=== PATIENT | male | born 1950 | race Caucasian/White ===

== ENCOUNTER 2016-07-03 09:51 | Inpatient (IN) | payer OTHER, MEDICARE ==
[~2016-07-03] VITALS: Ht 180.3 cm; Wt 77.1 kg
[2016-07-03 09:51] VITALS: BP 140/70; PULSE 72; RESP 20; TEMP 100.9; O2SAT 100
--- NOTE | 2016-07-03 09:51 | NUR ---
Pt BIB BLS and placed to ER bed 06. Pt c/o lower back pain x 1 day. Pt with hx spinal stenosis. Denies recent injury or trauma.
--- NOTE | 2016-07-03 09:55 | NUR ---
Dr. Hernández at bedside to assess pt.
--- NOTE | 2016-07-03 10:10 | NUR ---
Off unit for Xray.
[2016-07-03] MEDS ORDERED: KETOROLAC TROMETHAMINE 60 MG/2 ML VIAL IM ONE ×2 (10:12→10:15)
[2016-07-03 11:07] LABS: BILIRUBIN,URINE 1+ (NEGATIVE); BLOOD, URINE NEGATIVE (NEGATIVE); CLARITY/URINE CLEAR (CLEAR); COLOR,URINE YELLOW (YELLOW); GLUCOSE,URINE NEGATIVE (NEGATIVE); KETONES,URINE 2+ (NEGATIVE); LEUKOCYTE ESTERASE ,URINE NEGATIVE (NEGATIVE); NITRITE, URINE NEGATIVE (NEGATIVE); PH,URINE 6.5 (5.0-8.0); PROTEIN URINE 2+ (NEGATIVE)
[2016-07-03 11:10] LABS: BASOPHILS % (AUTO) 0.6 % (0.0-2.0); EOSINOPHILS % (AUTO) 0.1 % (0.0-4.0); HEMATOCRIT 37.5 % (36-54); HEMOGLOBIN 12.9 g/dL (14.0-18.0); LYMPHOCYTES # (AUTO) 0.4 K/uL (1.0-5.5); LYMPHOCYTES % (AUTO) 6.2 % (20.5-51.5); MEAN CORPUSCULAR HEMOGLOBIN 32 pg (27-31); MEAN CORPUSCULAR HGB CONC 34 % (32-36); MEAN CORPUSCULAR VOLUME 92 fL (79.0-98.0); MONOCYTES # (AUTO) 0.6 K/uL (0.0-1.0); MONOCYTES % (AUTO) 8.9 % (1.7-9.3); NEUTROPHILS # (AUTO) 5.2 K/uL (1.8-7.7); NEUTROPHILS % (AUTO) 84.2 % (40.0-70.0); PLATELET COUNT (AUTO) 119 K/uL (130-430); RED BLOOD CELL COUNT(AUTO) 4.07 MIL/uL (4.2-6.2); RED CELL DISTRIBUTION WIDTH 13.5 % (9.0-15.0); WHITE BLOOD COUNT (AUTO) 6.2 K/uL (4.8-10.8)
[2016-07-03 11:17] LABS: BACTERIA,URINE FEW /HPF (None Seen); MUCUS,URINE 1+ /LPF (None Seen); RBC,URINE 0-3 /HPF (0-3); WBC,URINE 0-3 /HPF (0-3)
[2016-07-03 11:27] LABS: CALCIUM 8.6 mg/dL (8.4-11.0); CREATININE 0.96 mg/dL (0.55-1.30); POTASSIUM 3.5 mmol/L (3.5-5.1)
[2016-07-03 11:31] LABS: ALBUMIN 3.1 g/dL (3.4-4.8); TOTAL BILIRUBIN 0.6 mg/dL (0.0-1.0); TOTAL PROTEIN, SERUM 6.6 g/dL (6.4-8.3)
[2016-07-03] MEDS ORDERED: cefTRIAXone 1 GM IVPB PREMIX 50 ML IV ONE (11:45)
[2016-07-03] MEDS ORDERED: HYDROcodone/ACETAMIN 5-325 MG TAB (NORCO/ VICODIN) PO ONE (11:45)
[2016-07-03] MEDS ORDERED: ONDANSETRON 4 MG ODT TAB PO ONE (11:45)
[2016-07-03] MEDS ORDERED: NACL 0.9% 1,000 ML IV ONE (11:45)
[2016-07-03 11:46] LABS: C-REACTIVE PROTEIN QUANT 27.4 mg/dL (0-0.5)
[2016-07-03 11:51] LABS: ERYTHROCYTE SEDIMENTATION RATE 24 MM/HR (0-15)
[2016-07-03] MEDS ORDERED: KETOROLAC TROMETHAMINE 30 MG VIAL IVP ONE (12:00)
--- NOTE | 2016-07-03 12:10 | NUR ---
# 20 gauge angiocath placed to LAC. Use of asceptic technique. Opsite placed over site. Blood return noted. Blood for lab drawn from site. Flushed with 10 cc of normal saline. No evidence of infiltration noted. Patient tolerated well.
[2016-07-03] MEDS ORDERED: VANCOMYCIN HCL 1,000 MG in NS 250 ML IV ONE (13:00)
--- NOTE | 2016-07-03 13:30 | NUR ---
aSSUMED PT. CARE, PT. RESTING, STATES LOWER BACK PAIN STILL AT 07/09, MD NOTIFIED
[2016-07-03] MEDS ORDERED: VANCOMYCIN HCL 1000 MG/VIAL IV ONE (13:36)
--- NOTE | 2016-07-03 13:50 | NUR ---
MEDICATION RECONCILIATION COMPLETED STATED BY PATIENT.
[2016-07-03] MEDS ORDERED: HYDR-3606 PO (13:54)
[2016-07-03] MEDS ORDERED: ONDANSETRON HCL 4 MG/2 ML VIAL IVP ONE (14:00)
[2016-07-03] MEDS ORDERED: MORPHINE 2 MG/ML INJ. SYRINGE IVP ONE (14:00)
--- NOTE | 2016-07-03 14:06 | NUR ---
Patient will be admitted to care of DR. CARRANZA. Admitted to [facility] unit. Will go to room 103 A. Belongings list completed. Summary report printed. Report will be given at bedside.
--- NOTE | 2016-07-03 14:33 | NUR ---
CALLED NEUROLOGY CONSULT TO DR LOONEY, RE: SPINAL STENOSIS. SPOKE TO JACEY
--- NOTE | 2016-07-03 14:38 | NUR ---
CALLED ID CONSULT TO DR OBRIEN, RE: PER DR CARRANZA. SPOKE TO SHERRON
[2016-07-03 15:18] VITALS: BP 121/69; PULSE 63; RESP 17; TEMP 97.2; O2SAT 97
--- NOTE | 2016-07-03 15:18 | NUR ---
ADMIT NOTE Received pt from ER to the floor with a diagnosis of chronic back pain, spinal stenosis. Admission process initiated. patient oriented to pain management, safety and call light-teach back done.
[2016-07-03 15:32] VITALS: BP 121/69; PULSE 65; RESP 17; TEMP 97.2; O2SAT 97
--- NOTE | 2016-07-03 15:36 | NUR ---
CALLED ATTENDING MD DR CARRANZA, RE: PAIN MEDS AND DIET. SPOKE TO DR CARRANZA
[2016-07-03] MEDS: HYDROmorphone 1 MG INJ. 1 MG/ML AMPUL IVP PRN ×2 (16:04→21:16)
--- NOTE | 2016-07-03 16:10 | NUR ---
RN Rounds Patient was received into his room assessed, patient complains of pain 10/10 scale, patient was given his pain med and will follow up the pain assessment. and continue charting for his admission
--- NOTE | 2016-07-03 18:00 | NUR ---
RN Closing note patient lying on bed relaxing, denies pain or discomfort. the surgeon have seen him and possibly will have his back operation tomorrow, will follow up to see if there is any M.D orders.
--- NOTE | 2016-07-03 19:25 | NUR ---
initial nursing notes: Patient awake in bed. Patient has an IV access on the left AC. Patient denies of having pain.
[2016-07-03 20:23] VITALS: BP 134/73; PULSE 62; RESP 18; TEMP 99.7; O2SAT 94
--- NOTE | 2016-07-03 21:25 | NUR ---
nursing rounds: Patient stated that he felt relief almost immediately, after receiving the pain medication for his left lower back pain.
--- NOTE | 2016-07-03 23:25 | NUR ---
nursing rounds: Patient asleep in bed. Patient has no shortness of breath.
[2016-07-04] VITALS (8 sets, daily range): BP systolic 96–132; BP diastolic 50–78; PULSE 64–105; RESP 14–18; TEMP 97.7–101.3; O2SAT 86–94
--- NOTE | 2016-07-04 01:25 | NUR ---
nursing rounds: Patient sleeping in bed. Patient's breathing pattern is regular and unlabored.
[2016-07-04] MEDS: HYDROmorphone 1 MG INJ. 1 MG/ML AMPUL IVP PRN ×5 (02:56→23:54)
--- NOTE | 2016-07-04 03:25 | NUR ---
nursing rounds: Patient received another dose of pain medication for his left lower back pain. Patient is currently asleep.
--- NOTE | 2016-07-04 05:25 | NUR ---
nursing rounds: Patient calmly resting in bed. Call light within patient's reach.
--- NOTE | 2016-07-04 06:10 | NUR ---
POSITIVE BLOOD CULTURE RESULT Spoke to Sabrina, from lab who reported pt.'s blood cultures were gram positive cocci in chains aerobic and anaerobic. Endorsed to Cristiano Dias RN.
--- NOTE | 2016-07-04 07:43 | NUR ---
closing nursing notes: Patient is awake, alert and oriented X 4. Patient is in no acute respiratory distress. No episodes of fall and no injuries throughout the shift superintendent caustic cresylate. Provided nursing report to incoming morning shift nurse, DARIUS Sanders, at patient's bedside.
--- NOTE | 2016-07-04 08:00 | NUR ---
NOTE PT AAOX4. PAIN MEDICATION GIVEN IVP FOR PAIN OF 9/10 ON PAIN SCALE OF 0/10. DR SORTO AT BEDSIDE. QUESTIONS/CONCERNS WERE ANSWERED AT THIS TIME. LEFT AC IV INTACT AND PATENT AT THIS TIME. NO SOB/RESP DISTRESS OR PAIN/DISCOMFORT NOTED AT THIS TIME. CALL LIGHT WITHIN REACH. DR SORTO TO ORDER TYLENOL FOR PT'S HIGH TEMPERATURE AT THIS TIME WELL.
--- NOTE | 2016-07-04 08:18 | NUR ---
Consultation- Called for consultation for Lizandro Bacon. Spoke w/Mackenzie. Phone number called [phone].
[2016-07-04] MEDS: VANCOMYCIN HCL 1,250 MG in NS 250 ML IV SCH ×2 (08:28→20:22)
--- NOTE | 2016-07-04 08:39 | NUR ---
Consultation follow up- called [phone] to cancel consultation @ [phone]. Spoke w/ Nelly
--- NOTE | 2016-07-04 08:49 | NUR ---
NOTE DR Francesco MARIEE CALLED AND ASKED DR CARRANZA TO BE NOTIFIED THAT HE IS OUT OF TOWN AND WILL NOT BE BACK IN TOWN TILL THURSDAY.
--- NOTE | 2016-07-04 08:51 | NUR ---
Consultation- call Dr. Ayala, [facility] office @ [phone] for a consultation. Spoke w/ Babita.
--- NOTE | 2016-07-04 09:09 | NUR ---
CALLED PAIN MGMT CONSULT TO DR Seun MARIEE, RE: LEG, BACKPAIN/STENOSIS. SPOKE TO MARIA M
[2016-07-04 09:15] LABS: BASOPHILS % (AUTO) 0.1 % (0.0-2.0); EOSINOPHILS % (AUTO) 0.1 % (0.0-4.0); HEMATOCRIT 37.5 % (36-54); HEMOGLOBIN 12.6 g/dL (14.0-18.0); LYMPHOCYTES # (AUTO) 0.6 K/uL (1.0-5.5); LYMPHOCYTES % (AUTO) 8.8 % (20.5-51.5); MEAN CORPUSCULAR HEMOGLOBIN 31 pg (27-31); MEAN CORPUSCULAR HGB CONC 34 % (32-36); MEAN CORPUSCULAR VOLUME 93 fL (79.0-98.0); MONOCYTES # (AUTO) 0.9 K/uL (0.0-1.0); MONOCYTES % (AUTO) 12.5 % (1.7-9.3); NEUTROPHILS # (AUTO) 5.4 K/uL (1.8-7.7); NEUTROPHILS % (AUTO) 78.5 % (40.0-70.0); PLATELET COUNT (AUTO) 115 K/uL (130-430); RED BLOOD CELL COUNT(AUTO) 4.01 MIL/uL (4.2-6.2); RED CELL DISTRIBUTION WIDTH 13.4 % (9.0-15.0); WHITE BLOOD COUNT (AUTO) 6.9 K/uL (4.8-10.8)
--- NOTE | 2016-07-04 09:35 | NUR ---
NOTE DR CARRANZA WAS ON THE FLOOR AT 0857 [address] WAS [address] DR MARIEE IS OUT OF TOWN TILL THURSDAY. PT WAS SEEN AND ASSESSED BY DR CARRANZA AT 0932. ORDERS GIVEN AND CARRIED OUT AT THIS TIME. PT RESTING IN BED AT THIS TIME. NO NEEDS NOTED. PT NEXT TO NURSES' STATION UNDER CLOSE OBSERVATION SINCE START OF SHIFT. CALL LIGHT WITHIN REACH.
[2016-07-04 09:45] LABS: ANION GAP 11 (5-15); CALCIUM 8.6 mg/dL (8.4-11.0); CHLORIDE 100 mmol/L (98-107); GLUCOSE 125 mg/dL (70-99); POTASSIUM 3.6 mmol/L (3.5-5.1); SODIUM SERUM 137 mmol/L (136-145)
[2016-07-04 09:46] LABS: CREATININE 0.93 mg/dL (0.55-1.30); GFR AFRICAN AMERICAN 105 mL/min (>90); UREA NITROGEN, BLOOD 15 mg/dL (8-21)
[2016-07-04] MEDS ORDERED: GABAPENTIN 300 MG CAPSULE PO ONE (10:00)
[2016-07-04 10:08] LABS: ERYTHROCYTE SEDIMENTATION RATE 5 MM/HR (0-15)
[2016-07-04] MEDS: ACETAMINOPHEN 500 MG TABLET PO PRN ×2 (10:30→20:18)
--- NOTE | 2016-07-04 11:00 | NUR ---
NOTE PT WORKED WITH PHYSICAL THERAPY ON AMBULATION. TOLERATED WELL. PT WAS GIVEN HIS TYLENOL PO FOR TEMP AND NEURONTIN PO FOR LOWER BACK MUSCLE PAIN. PT NOW RESTING IN BED. NO NEEDS NOTED. CALL LIGHT WITHIN REACH.
--- NOTE | 2016-07-04 13:30 | NUR ---
NOTE PT'S CAME TO VISIT PT AND SPEND TIME WITH PT AT THIS TIME. NO NEEDS WERE NOTED AT THIS TIME. PT SITTING UP IN BED AND FINISHED LUNCH AND NOW RESTING AND VISITING WITH . CALL LIGHT WITHIN REACH.
[2016-07-04 14:07] LABS: C-REACTIVE PROTEIN QUANT < 0.2 mg/dL (0-0.5)
--- NOTE | 2016-07-04 16:00 | NUR ---
NOTE PT RESTING IN BED. NO NEEDS NOTED. PAIN TOLERABLE AT THIS TIME. CALL LIGHT WITHIN REACH.
--- NOTE | 2016-07-04 16:45 | NUR ---
NOTE DR LAZAR ON THE FLOOR WENT TO SEE PT, PT WAS VERY DEEPLY ASLEEP AFTER PAIN MEDICATION WAS GIVEN IVP. DR LAZAR WILL SEE PT TOMORROW. DR LAZAR CHECKING ON PT'S LABS AND MEDICATIONS AT THIS TIME. CALL LIGHT WITHIN REACH.
--- NOTE | 2016-07-04 18:50 | NUR ---
NOTE PT RESTING AFTER EATING HIS DINNER. PAIN TOLERABLE AT THIS TIME. NO SOB/RESP DISTRESS NOTED AT THIS TIME. PT WAS CHECKED ON Q1' AND PRN FOR NEEDS AND CARE. IV IN LEFT AC INTACT AND PATENT AT THIS TIME. NO NEEDS NOTED. CALL LIGHT WITHIN REACH.
--- NOTE | 2016-07-04 19:25 | NUR ---
initial nursing notes: Patient awake in bed. Patient's IV access on the left AC is intact. Patient denies of having pain.
[2016-07-04] MEDS: GABAPENTIN 300 MG CAPSULE PO SCH (20:19)
--- NOTE | 2016-07-04 21:25 | NUR ---
nursing rounds: Patient's temperature has went down to 98.8 (from Temp. = 102.4), after receiving Tylenol.
--- NOTE | 2016-07-04 23:25 | NUR ---
nursing rounds: Patient sleeping in bed. Patient's breathing pattern is regular and unlabored.
--- NOTE | 2016-07-05 01:25 | NUR ---
nursing rounds: Patient's pain medication was effective in treating his back pain. Patient is currently asleep in bed.
--- NOTE | 2016-07-05 03:25 | NUR ---
nursing rounds: Patient asleep in bed. Patient has no shortness of breath.
[2016-07-05 04:10] VITALS: BP 149/82; PULSE 83; RESP 18; TEMP 99; O2SAT 94
--- NOTE | 2016-07-05 05:25 | NUR ---
nursing rounds: Patient sleeping in bed. Patient has no respiratory distress.
[2016-07-05 07:20] VITALS: BP 136/77; PULSE 82; RESP 16; TEMP 100; O2SAT 92
--- NOTE | 2016-07-05 07:20 | NUR ---
INITIAL NOTE RECEIVED PATIENT FROM STUDIO DESIGNER NURSE, PATIENT IS RESTING IN BED, NO SIGNS OF DISTRESS NOTED, PATIENT HAS NO COMPLAINTS OF PAIN AT THIS TIME, ASSESSMENT COMPLETE, PATIENT IS ALERT AND ORIENTED X 4, PATIENT HAS IV ON LEFT FOREARM, NO SIGNS OF INFILTRATION NOTED, INSTRUCTED PATIENT TO USE CALL EUCEDA IF ASSISTANCE IS NEEDED, PATIENT VERBALIZED UNDERSTANDING, BED IN LOWEST POSITION, BED ALARM ON, CALL EUCEDA LEFT NEXT TO PATIENT, FALL PRECAUTIONS IN PLACE, WILL CONTINUE TO MONITOR PATIENT.
--- NOTE | 2016-07-05 07:30 | NUR ---
closing nursing notes: Patient is awake, alert and oriented X 4. Patient is in no acute respiratory distress. No episodes of fall and no injuries throughout the shift production supervisor. Provided nursing report to incoming morning shift nurse, DARIUS Fisher, at patient's bedside.
[2016-07-05] MEDS: GABAPENTIN 300 MG CAPSULE PO SCH (08:04)
[2016-07-05] MEDS: VANCOMYCIN HCL 1,250 MG in NS 250 ML IV SCH (08:05)
[2016-07-05] MEDS: HYDROmorphone 1 MG INJ. 1 MG/ML AMPUL IVP PRN ×3 (08:06→16:44)
--- NOTE | 2016-07-05 08:07 | NUR ---
MEDICATIONS PATIENT RECEIVED MORNING MEDICATIONS, EDUCATED PATIENT ON POTENTIAL SIDE EFFECTS OF MEDICATIONS, PATIENT VERBALIZED UNDERSTANDING, PATIENT STATED HE WAS IN PAIN, PRN PAIN MEDICATION GIVEN WILL REASSESS EFFECTIVENESS, CALL EUCEDA LEFT NEXT TO PATIENT'S HAND, BED IN LOWEST POSITION, BED ALARM ON, FALL PRECAUTIONS IN PLACE
--- NOTE | 2016-07-05 08:09 | NUR ---
Nutrition Update Simon Scale 18 noted. (07/04/16 0800) Pt admitted for Spinal Stenosis. Diet: Regular diet BMI: 23.7 kg/m2 RD to follow per nutrition care standards.
--- NOTE | 2016-07-05 10:24 | NUR ---
RN ROUNDS PATIENT IS CURRENTLY RESTING IN BED WITH EYES CLOSED, NO SIGNS OF DISTRESS NOTED, WILL CONTINUE TO MONITOR PATIENT, FALL PRECAUTIONS IN PLACE, CALL EUCEDA WITHIN REACH OF PATIENT.
--- NOTE | 2016-07-05 11:14 | NUR ---
CONSULT: DR ALVAREZ (DR ALLEN O/C) Consult was called, re endocarditis wei Martin
[2016-07-05] MEDS ORDERED: BISACODYL 5 MG TABLET.DR (DULCOLAX) PO PRN (11:15)
[2016-07-05] MEDS ORDERED: DOCUSATE SODIUM 250 MG CAPSULE PO ONE (11:15)
[2016-07-05 11:52] VITALS: BP 120/76; PULSE 80; RESP 14; TEMP 100.3; O2SAT 86; O2SAT 96
--- NOTE | 2016-07-05 12:36 | NUR ---
RN ROUNDS PATIENT IS CURRENTLY RESTING IN BED, PATIENT STATED HE WAS HAVING BACK PAIN, PRN MEDICATION GIVEN, WILL REASSESS EFFECTIVENESS, NO OTHER NEEDS AT THIS TIME, CALL EUCEDA LEFT NEXT TO PATIENT'S HAND, FALL PRECAUTIONS IN PLACE, WILL CONTINUE TO MONITOR PATIENT.
--- NOTE | 2016-07-05 13:58 | NUR ---
RN ROUNDS PATIENT IS RESTING IN BED, PATIENT HAS NO COMPLAINTS OF PAIN AT THIS TIME, NO SIGNS OF DISTRESS NOTED, WILL CONTINUE TO MONITOR PATIENT, FALL PRECAUTIONS IN PLACE, CALL EUCEDA WITHIN REACH OF PATIENT
--- NOTE | 2016-07-05 15:15 | NUR ---
RN ROUNDS PATIENT IS SITTING UP IN BED TALKING TO , NO SIGNS OF DISTRESS NOTED, PATIENT STATES HE IS IN SLIGHT DISCOMFORT BUT NO MAJOR PAIN, FALL PRECAUTIONS IN PLACE, CALL EUCEDA LEFT WITHIN REACH OF PATIENT, WILL CONTINUE TO MONITOR.
[2016-07-05 16:30] VITALS: BP 135/75; PULSE 80; RESP 20; TEMP 100; O2SAT 93
[2016-07-05] MEDS: ACETAMINOPHEN 500 MG TABLET PO PRN (16:39)
--- NOTE | 2016-07-05 16:40 | NUR ---
RN ROUNDS PATIENT IS RESTING IN BED, PATIENT WAS HAVING LOWER BACK PAINS, PRN MEDICATION GIVEN, NO OTHER NEEDS AT THIS TIME, FALL PRECAUTIONS IN PLACE, WILL CONTINUE TO MONITOR PATIENT.
[2016-07-05] MEDS ORDERED: NEU300 PO (17:31)
[2016-07-05] MEDS ORDERED: L.RH1CAP PO (17:31)
[2016-07-05] MEDS ORDERED: AMOX-426 PO (17:31)
[2016-07-05] MEDS ORDERED: DOCU250C PO (17:32)
[2016-07-05 17:47] VITALS: BP 136/77; PULSE 82; RESP 16; TEMP 99; O2SAT 93
--- NOTE | 2016-07-05 19:15 | NUR ---
D/C Patient Patient given medication reconciliation form and D/C instructions. Exit Care provided. Patient verbalized understanding. MD discussed with patient the results and treatment provided. Ambulatory with steady gait for discharge to home. Patient in stable condition, ID band removed. IV catheter removed, intact and dressing applied, no active bleeding. Rx of Augmentin, Gabapentin, Probiotic given. Patient educated on pain management. All belongings sent with patient.
[2016-07-05] MEDS ORDERED: DOCUSATE SODIUM 250 MG CAPSULE PO SCH (21:00)
--- NOTE | 2016-07-08 11:23 | NUR ---
Discharge Follow Up Phone Call INDUSTRIAL REFRIGERATION MECHANIC phoned patient, . Patient stated he was doing fine. He filled his prescriptions and is taking them as directed. He has made his follow up appointments. Patient asked INDUSTRIAL REFRIGERATION MECHANIC to verify that he has secondary [employer] insurance listed in his record. INDUSTRIAL REFRIGERATION MECHANIC verified. Patient has no other questions or concerns.
== END 2016-07-05 19:11 | disposition home or self-care (01) | DRG 872 ==
LOC: SED 09:51 → SMU 13:40
PROVIDERS: ADMIT Internal Medicine Hospice and Palliative Medicine; ATTEND Internal Medicine Hospice and Palliative Medicine
DX: A40.9 Streptococcal sepsis, unspecified (principal); G89.29 Other chronic pain; M41.9 Scoliosis, unspecified; M21.611 Bunion of right foot; M21.612 Bunion of left foot; M47.26 Other spondylosis with radiculopathy, lumbar region; M48.06 Spinal stenosis, lumbar region; Z96.643 Presence of artificial hip joint, bilateral; R09.89 Other specified symptoms and signs involving the circulatory and respiratory systems; Z88.2 Allergy status to sulfonamides; Z85.46 Personal history of malignant neoplasm of prostate
CPT/HCPCS: 36415; 71010; 72110; 72131; 72148; 72170-TC; 80048; 80053; 81000-TC; 83605; 85025; 85651-TC; 86140; 87040-TC; 87186-TC; 93005; 93306; 93880; 96365; 96372; 96375; 97116-GP; 99285; J0696; J1170; J1885; J2270; J2405; J3370; J7030; J7050; J7060; Q0162